=== PATIENT | female | born 1970 | race Caucasian/White ===

== ENCOUNTER 2016-05-26 10:44 | Emergency (ER) | payer OTHER, MEDICARE, MEDICAID ==
--- NOTE | 2016-05-26 11:02 | EDM.PDOC ---
ED HPI Trauma - General Chief Complaint: Lower Extremity Injury/Pain Stated Complaint: HIPS,THIGH AND LEGS BURNING Time Seen by Provider: 05/26/16 11:02 Source: Reports: Patient History Limitations: Reports: No limitations - History of Present Illness INITIAL COMMENTS - FREE TEXT/NARRATIVE: History of present illness: [41-year-old female presenting with acute onset of left hip pain thigh burning and some foot weakness. Patient has had a history of this prior and indicates she was diagnosed with hip subluxation with subsequent treatment and resolution but now with return of symptoms status post fishing trip. Patient indicates there was some slip and then jarring while on trip and is suspicious she has free injured her hip] Review of systems: As per history of present illness and below otherwise all systems reviewed and negative. Past medical history: As per history of present illness and as reviewed below otherwise noncontributory. Surgical history: As per history of present illness and as reviewed below otherwise noncontributory. Social history: No reported history of drug or alcohol abuse. Family history: As per history of present illness and as reviewed below otherwise noncontributory. Physical exam: HEENT: Atraumatic, normocephalic, pupils reactive, negative for conjunctival pallor or scleral icterus, mucous membranes moist, throat clear, neck supple, nontender, trachea midline. Lungs: Clear to auscultation, breath sounds equal bilaterally, chest nontender. Heart: S1S2, regular, negative for clicks, rubs, or JVD. Abdomen: Soft, nondistended, nontender. Negative for masses or hepatosplenomegaly. Negative for costovertebral tenderness. Pelvis: Stable nontender. Genitourinary: Deferred. Rectal: Deferred. Extremities: Atraumatic, negative for cords or calf pain. Neurovascular unremarkable. Neuro: Awake, alert, oriented. Cranial nerves II through XII unremarkable. Cerebellum unremarkable. Motor and sensory unremarkable throughout. Exam nonfocal. Patient indicates exquisite burning pain with accompanied tenderness on anterior aspect of left thigh left tavarez outer aspect of left calf as well as bilateral knee area. These findings are consistent with neuropathic pain, there are no findings of displacement in the x-rays of the hip and pelvis but this cannot preclude soft tissue issues. Diagnostics: [X-ray of hips and pelvis.] Therapeutics: [Toradol 60 mg IM] Impression: [Leg pain] Plan: [] Definitive disposition and diagnosis as appropriate pending reevaluation and review of above. 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 Home Medications: Ambulatory Orders Compound Progesterone 1 tab PO DAILY 06/25/15 [Confirmed 04/20/16] Hydrochlorothiazide 1 tab PO DAILY 06/25/15 [Confirmed 04/20/16] Fluticasone Propionate [Flonase] 2 spray INH DAILY 04/20/16 [Confirmed 04/20/16] [place]-3/DHA/Epa/Fish Oil [Fish Oil 1,600 mg/5 ml Liquid] 1 tsp PO DAILY [Confirmed 04/20/16] Gabapentin [Neurontin] 300 mg PO TID #30 cap 05/26/16 Lidocaine Patch 05/26/16 Past Medical History - Past Health History Medical/Surgical History: Denies Medical/Surgical History HEENT History: Reports: None Cardiovascular History: Reports: None Respiratory History: Reports: None Gastrointestinal History: Reports: None Genitourinary History: Reports: None INTAKE NURSE History: Reports: Other (see below) Other OB/BYN History: Menopause Musculoskeletal History: Reports: Other (see below) Other Musculoskeletal History: 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 Neurological History: Reports: Other (see below) Other Neuro History: Hypersomnalance post surgery Psychiatric History: Reports: None Endocrine/Metabolic History: Reports: None Hematologic History: Reports: None Immunologic History: Reports: None Oncologic (Cancer) History: Reports: None Dermatologic History: Reports: None - Infectious Disease History Infectious Disease History: Reports: None - Past Surgical History Head Surgeries/Procedures: Reports: None HEENT Surgical History: Reports: Tonsillectomy GI Surgical History: Reports: None Female Surgical History: Reports: Oophorectomy Neurological Surgical History: Reports: None Musculoskeletal Surgical History: Reports: None Dermatological Surgical History: Reports: None Social & Family History - Family History Family Medical History: Noncontributory - Tobacco Use Smoking Status *Q: Never Smoker Second Hand Smoke Exposure: No - Caffeine Use Caffeine Use: Reports: Soda Caffeine Use Comment: 1drink/week - Recreational Drug Use Recreational Drug Use: No Review of Systems - Review of Systems Review Of Systems: See Below (See history of present illness) Trauma Exam - Physical Exam Exam: See Below (See history of present illness) Departure - Departure Time of Disposition: 12:44 Disposition: Home, Self-Care 01 Condition: good Clinical Impression: Leg pain, left Forms: ED Department Discharge Additional Instructions: The following information is given to patients seen in the emergency department who are being discharged to home. This information is to outline your options for follow-up care. We provide all patients seen in our emergency department with a follow-up referral. The need for follow-up, as well as the timing and circumstances, are variable depending upon the specifics of your emergency department visit. If you don't have a primary care physician on staff, we will provide you with a referral. We always advise you to contact your personal physician following an emergency department visit to inform them of the circumstance of the visit and for follow-up with them and/or the need for any referrals to a consulting specialist. The emergency department will also refer you to a specialist when appropriate. This referral assures that you have the opportunity for follow-up care with a specialist. All of these measure are taken in an effort to provide you with optimal care, which includes your follow-up. Under all circumstances we always encourage you to contact your private physician who remains a resource for coordinating your care. When calling for follow-up care, please make the office aware that this follow-up is from your recent emergency room visit. If for any reason you are refused follow-up, please contact the [facility] Emergency Department at and asked to speak to the emergency department charge nurse. Take medication as directed Followup with PCP in one to 2 days Return to ED as needed as discussed
[2016-05-26] MEDS ORDERED: Ketorolac 60 MG/2 ML SDV IM ONE (11:06)
[2016-05-26 11:09] VITALS: BP 118/80
--- NOTE | 2016-05-28 17:36 | CR ---
EXAM DATE: 05/26/16 PATIENT'S AGE: 46 Patient: STEPHANIE SWARTZ Facility: [place], [place] Site . Site : [id number] Study: XRay Extremity Left [id number]/1/2017 11:28:46 AM Ordering Physician: Doctor Fairbanks Final Report: Pelvis and left hip. 3 VIEWS INDICATION: Pain. IMPRESSION: No visualized fracture. Alignments anatomic. Joint spaces unremarkable. Dictated by El Ruffin MD @ May 26 2016 11:31AM (Electronic Signature) Report Signed by Proxy and Original Signed Document filed in the Medical Record. CLAIRE
== END 2016-05-26 13:30 | disposition home or self-care (01) ==
LOC: MW.ED 10:44
DX: M79.605 Pain in left leg (principal); Z98.890 Other specified postprocedural states; Z88.1 Allergy status to other antibiotic agents; Z88.8 Allergy status to other drugs, medicaments and biological substances
CPT/HCPCS: 73502; 96372; 99283; J1885

== ENCOUNTER 2016-06-15 16:08 | Emergency (ER) | payer OTHER, MEDICARE ==
[2016-06-15] MEDS ORDERED: cefTRIAXone 2,000 MG in Lidocaine 1% 4 ML IM ONE (16:33)
[2016-06-15 16:40] VITALS: BP 130/63
--- NOTE | 2016-06-15 16:42 | EDM.PDOC ---
ED HPI Trauma - General Chief Complaint: Upper Extremity Injury/Pain Stated Complaint: BUG BITE ON FINGER Time Seen by Provider: 06/15/16 16:20 Source: Reports: Patient History Limitations: Reports: No limitations - History of Present Illness INITIAL COMMENTS - FREE TEXT/NARRATIVE: History of present illness: [46-year-old female presenting with acute onset of pustular lesion on her second digit right hand. She indicates she feels she has been bitten and this morning it itched and has gotten progressively more inflamed and now her fingers beginning to feel numb from the pressure.] Review of systems: As per history of present illness and below otherwise all systems reviewed and negative. Past medical history: As per history of present illness and as reviewed below otherwise noncontributory. Surgical history: As per history of present illness and as reviewed below otherwise noncontributory. Social history: No reported history of drug or alcohol abuse. Family history: As per history of present illness and as reviewed below otherwise noncontributory. Physical exam: HEENT: Atraumatic, normocephalic, pupils reactive, negative for conjunctival pallor or scleral icterus, mucous membranes moist, throat clear, neck supple, nontender, trachea midline. Lungs: Clear to auscultation, breath sounds equal bilaterally, chest nontender. Heart: S1S2, regular, negative for clicks, rubs, or JVD. Abdomen: Soft, nondistended, nontender. Negative for masses or hepatosplenomegaly. Negative for costovertebral tenderness. Pelvis: Stable nontender. Genitourinary: Deferred. Rectal: Deferred. Extremities: Atraumatic, negative for cords or calf pain. Neurovascular unremarkable. Neuro: Awake, alert, oriented. Cranial nerves II through XII unremarkable. Cerebellum unremarkable. Motor and sensory unremarkable throughout. Exam nonfocal. Skin: Small pustule area noted on the proximal phalange he of the right hand ( second digit ), with an area of erythema surrounding it approximately the size of a quarter. Diagnostics: [] Therapeutics: [] Impression: [Insect bite with secondary infection] Plan: [Anabiotic] Definitive disposition and diagnosis as appropriate pending reevaluation and review of above. 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 Home Medications: Ambulatory Orders Compound Progesterone 1 tab PO DAILY 06/25/15 [Confirmed 04/20/16] Hydrochlorothiazide 25 mg PO DAILY 06/25/15 [Confirmed 04/20/16] Fluticasone Propionate [Flonase] 2 spray INH DAILY 04/20/16 [Confirmed 04/20/16] [place]-3/DHA/Epa/Fish Oil [Fish Oil 1,600 mg/5 ml Liquid] 1 tsp PO DAILY [Confirmed 04/20/16] Progesterone,Micronized [Progesterone] 150 mg PO DAILY 06/15/16 [Confirmed 06/15] Sulfamethoxazole/Trimethoprim [Bactrim Ds Tablet] 1 each PO BID #20 tablet 06/15 Past Medical History - Past Health History Medical/Surgical History: Denies Medical/Surgical History HEENT History: Reports: None Cardiovascular History: Reports: None Respiratory History: Reports: None Gastrointestinal History: Reports: None Genitourinary History: Reports: None [employer] History: Reports: Other (see below) Other OB/BYN History: Menopause Musculoskeletal History: Reports: Other (see below) Other Musculoskeletal History: 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 Neurological History: Reports: Other (see below) Other Neuro History: Hypersomnalance post surgery Psychiatric History: Reports: None Endocrine/Metabolic History: Reports: None Hematologic History: Reports: None Immunologic History: Reports: None Oncologic (Cancer) History: Reports: None Dermatologic History: Reports: None - Infectious Disease History Infectious Disease History: Reports: None - Past Surgical History Head Surgeries/Procedures: Reports: None HEENT Surgical History: Reports: Tonsillectomy GI Surgical History: Reports: None Female Surgical History: Reports: Oophorectomy Neurological Surgical History: Reports: None Musculoskeletal Surgical History: Reports: None Dermatological Surgical History: Reports: None Social & Family History - Family History Family Medical History: Noncontributory - Tobacco Use Smoking Status *Q: Never Smoker Second Hand Smoke Exposure: No - Caffeine Use Caffeine Use: Reports: Soda Caffeine Use Comment: 1drink/week - Recreational Drug Use Recreational Drug Use: No Review of Systems - Review of Systems Review Of Systems: See Below (History of present illness) Trauma Exam - Physical Exam Exam: See Below (The history of present illness) Course - Orders/Labs/Meds Meds: Medications Discontinued Medications Generic Name Dose Route Start Last Admin Trade Name Eliseo PRN Reason Stop Dose Admin Ceftriaxone Sodium 2,000 mg/ 4 mls @ 4 mls/sec 06/15/16 16:33 Lidocaine HCl IM 06/15/16 16:34 ONETIME ONE Departure - Departure Time of Disposition: 16:39 Disposition: Home, Self-Care 01 Condition: good Clinical Impression: Insect bite, Skin infection Prescriptions: Sulfamethoxazole/Trimethoprim [Bactrim Ds Tablet] 1 each PO BID #20 tablet Forms: ED Department Discharge Additional Instructions: The following information is given to patients seen in the emergency department who are being discharged to home. This information is to outline your options for follow-up care. We provide all patients seen in our emergency department with a follow-up referral. The need for follow-up, as well as the timing and circumstances, are variable depending upon the specifics of your emergency department visit. If you don't have a primary care physician on staff, we will provide you with a referral. We always advise you to contact your personal physician following an emergency department visit to inform them of the circumstance of the visit and for follow-up with them and/or the need for any referrals to a consulting specialist. The emergency department will also refer you to a specialist when appropriate. This referral assures that you have the opportunity for follow-up care with a specialist. All of these measure are taken in an effort to provide you with optimal care, which includes your follow-up. Under all circumstances we always encourage you to contact your private physician who remains a resource for coordinating your care. When calling for follow-up care, please make the office aware that this follow-up is from your recent emergency room visit. If for any reason you are refused follow-up, please contact the [facility] Emergency Department at and asked to speak to the emergency department charge nurse. Take medication as directed Follow up with PCP in one to 2 days Return to ED as needed as discussed
== END 2016-06-15 18:12 | disposition home or self-care (01) ==
LOC: MW.ED 16:08
DX: S60.460A Insect bite (nonvenomous) of right index finger, initial encounter (principal); Z88.8 Allergy status to other drugs, medicaments and biological substances; Z79.899 Other long term (current) drug therapy
CPT/HCPCS: 96372; 99283; J0696